=== PATIENT | female | born 1955 | race Asian ===

== ENCOUNTER 2018-03-24 09:35 | Day surgery (SDC) | payer BC ==
[2018-03-24] MEDS ORDERED: ONDANSETRON 4 MG/2 ML VIAL IV ONE (09:36)
[2018-03-24] MEDS ORDERED: NEOSTIGMINE METHYLSULFATE 10 MG/10 ML VIAL IV ONE (09:36)
[2018-03-24] MEDS ORDERED: EPHEDRINE SULFATE 50 MG/ML AMPUL MC ONE (09:36)
[2018-03-24] MEDS ORDERED: GLYCOPYRROLATE 0.2 MG/ML VIAL MC ONE (09:36)
[2018-03-24] MEDS ORDERED: SEVOFLURANE 250 ML BOTTLE IH ONE (09:36)
[2018-03-24] MEDS ORDERED: DEXAMETHASONE SOD PHOSPHATE 4 MG INJ IV ONE (09:36)
[2018-03-24] MEDS ORDERED: PROPOFOL 200 MG/20 ML BOTTLE IV ONE (09:36)
[2018-03-24] MEDS ORDERED: LIDOCAINE-MPF 2% 5 ML VIAL MC ONE (09:36)
[2018-03-24] MEDS ORDERED: VECURONIUM BROMIDE 10 MG VIAL IV ONE (09:36)
[2018-03-24] MEDS ORDERED: CEFAZOLIN 1 G VIAL MC ONE (09:36)
[2018-03-24] MEDS ORDERED: PHENYLEPHRINE 1% (EXTRA STR) NASAL SPRAY NS ONE (10:10)
[2018-03-24] MEDS ORDERED: BACITRACIN ZINC OINT 15 GM TUBE ONE (10:11)
[2018-03-24] MEDS ORDERED: LIDOCAINE 1%-EPI 1:100,000 20 ML VIAL ONE (10:12)
[2018-03-24] MEDS ORDERED: FENTANYL CITRATE 100 MCG/2 ML AMPUL ONE (10:53)
[2018-03-24] MEDS ORDERED: MIDAZOLAM HCL 2 MG/2 ML VIAL ONE (10:53)
[2018-03-24] MEDS ORDERED: HYDROCODONE/APAP 5-325MG TABLET ONE (14:20)
== END 2018-03-24 14:30 | disposition home or self-care (01) ==
LOC: DS 09:35
PROVIDERS: ATTEND Otolaryngology
DX: J34.2 Deviated nasal septum (principal); J34.3 Hypertrophy of nasal turbinates; J34.89 Other specified disorders of nose and nasal sinuses; Z79.899 Other long term (current) drug therapy
CPT/HCPCS: 30140; 30520; 31240; A4663; J0690; J1100; J2250; J2405; J2710; J3010; J3490 ×6; J7120